=== PATIENT | female | born 1965 | race American Indian/Alaskan Native ===

== ENCOUNTER 2018-03-09 23:44 | Emergency (ER) | payer SELFPAY ==
[2018-03-10 01:59] VITALS: BP 122/82
[2018-03-10 03:36] LABS: Hematocrit 36.1 % (30.3-42.9); Mean Corpuscular HGB Conc 33 % (30-34); Mean Corpuscular Hemoglobin 28 pg (28-32); Mean Corpuscular Volume 84 fl (79-97); Platelet Count 288 K/mm3 (140-440); Red Blood Count 4.32 M/mm3 (3.65-5.03); Red Cell Distribution Width 15.6 % (13.2-15.2)
[2018-03-10 03:49] LABS: BUN/Creatinine Ratio 17; Blood Urea Nitrogen 10 mg/dL (7-17); Hemolysis Index 22
[2018-03-10 04:24] LABS: Bilirubin,Urine NEG (Negative); Blood,Urine NEG (Negative); Color,Urine Yellow (Yellow); Mucus,Urine FEW /HPF; Protein,Urine <15 mg/dL mg/dL (Negative); Urobilinogen,Urine < 2.0 mg/dL (<2.0)
== END 2018-03-10 09:05 | disposition left against medical advice (07) ==
LOC: ED 23:44
DX: H53.8 Other visual disturbances (principal); Z53.21 Procedure and treatment not carried out due to patient leaving prior to being seen by health care provider
CPT/HCPCS: 36415; 80048; 81001; 85027; 93005; 93010

== ENCOUNTER 2018-03-12 09:02 | Emergency (ER) | payer SELFPAY ==
--- NOTE | 2018-03-12 12:58 | Emergency Department Report ---
Blank Doc - Documentation Documentation: 52-year-old female with no significant past medical history but has not seen a doctor in several years presents to the hospital with 2 near syncopal episodes this week. Patient came here on the for near-syncopal episode was started at 10 PM. Patient had nausea, dizziness, blurred vision and almost passed out. She came to the ER to be evaluated. Labs and EKG performed but left prior to M.D. evaluation. Patient reports that while getting out of bed this a.m. she had a repeat episode of dizziness/lightheadedness, blurred vision, and had mild left-sided sharp chest pain and shortness of breath. Episodes spontaneously resolved. Patient states she almost fell but did not pass out completely. She denies alcohol, drug use, nausea, vomiting, diarrhea, melena, or hematochezia. She states she's been eating and drinking appropriately. While week ago patient returns to [place] via bus ride but does not have any calf tenderness, edema, leg asymmetry. Patient denies pain at this time Repeat EKG reviewed an unchanged normal sinus rhythm rate 63, QRS axis 95, Esterase 95, no ST elevation or T-wave inversions. [facility] Repeat labs CBC, BMP, CK, troponin, UDS, d-dimer Mid-level to evaluate
[2018-03-12 13:24] LABS: Basophils % (Auto) 0.8 % (0.0-1.8); Eosinophils # (Auto) 0.1 K/mm3 (0.0-0.4); Eosinophils % (Auto) 1.3 % (0.0-4.3); Hematocrit 38.4 % (30.3-42.9); Hemoglobin 12.4 gm/dl (10.1-14.3); Lymphocytes # (Auto) 2.6 K/mm3 (1.2-5.4); Lymphocytes % (Auto) 44.1 % (13.4-35.0); Mean Corpuscular HGB Conc 32 % (30-34); Mean Corpuscular Hemoglobin 28 pg (28-32); Mean Corpuscular Volume 86 fl (79-97); Monocytes # (Auto) 0.6 K/mm3 (0.0-0.8); Monocytes % (Auto) 9.7 % (0.0-7.3); Platelet Count 286 K/mm3 (140-440); Red Blood Count 4.49 M/mm3 (3.65-5.03); Red Cell Distribution Width 15.9 % (13.2-15.2)
[2018-03-12 13:49] LABS: BUN/Creatinine Ratio 13; Blood Urea Nitrogen 8 mg/dL (7-17); Calcium 9.2 mg/dL (8.4-10.2); Hemolysis Index 4
[2018-03-12 13:51] LABS: Creatine Kinase MB < 1.0 ng/mL (0.0-4.0)
--- NOTE | 2018-03-12 14:20 | Emergency Department Report ---
ED Syncope HPI - General Chief Complaint: Syncope Stated Complaint: SYNCOPE Time Seen by Provider: 03/12/18 12:46 - History of Present Illness Initial Comments: 52-year-old female past medical history hypertension, tubal ligation presents with complaint of intermittent syncopal episodes and dizziness. States she has had multiple episodes of near loss of consciousness. Complaining of left-sided chest side pain. Patient is awake alert and oriented 3. Denies any shortness of breath at this time. States she has had recent travel. Denies any previous history of PE or DVT. Patient's screening by Dr. Duval earlier. Patient came to the ED 3 days ago but eloped before she was evaluated. Timing/Prior Episodes: recent history Precipitating Factors: Positive: lightheadedness Loss of Consciousness: brief (seconds) Current Symptoms: dizziness, lightheadedness - Related Data Allergies/Adverse Reactions: Allergies No Known Allergies Allergy (Unverified 03/10/18 02:53) ED Review of Systems ROS: Stated complaint: SYNCOPE Other details as noted in HPI Constitutional: denies: chills, fever Eyes: denies: eye pain, eye discharge, vision change ENT: denies: ear pain, throat pain Respiratory: denies: cough, shortness of breath, wheezing Cardiovascular: denies: chest pain, palpitations Endocrine: no symptoms reported Gastrointestinal: denies: abdominal pain, nausea, diarrhea Genitourinary: denies: urgency, dysuria, discharge Musculoskeletal: denies: back pain, joint swelling, arthralgia Skin: denies: rash, lesions Neurological: headache, weakness. denies: paresthesias Psychiatric: denies: anxiety, depression Hematological/Lymphatic: denies: easy bleeding, easy bruising ED Past Medical Hx - Past Medical History Previous Medical History?: No - Surgical History Past Surgical History?: Yes Additional Surgical History: Tubal Ligation - Social History Smoking Status: Never Smoker ED Physical Exam - General Limitations: No Limitations General appearance: alert, in no apparent distress - Head Head exam: Present: atraumatic, normocephalic - Eye Eye exam: Present: normal appearance, PERRL, EOMI - ENT ENT exam: Present: mucous membranes moist - Neck Neck exam: Present: normal inspection - Respiratory Respiratory exam: Present: normal lung sounds bilaterally. Absent: respiratory distress - Cardiovascular Cardiovascular Exam: Present: regular rate, normal rhythm. Absent: systolic murmur, diastolic murmur, rubs, gallop - GI/Abdominal GI/Abdominal exam: Present: soft, normal bowel sounds - Extremities Exam Extremities exam: Present: normal inspection - Back Exam Back exam: Present: normal inspection - Neurological Exam Neurological exam: Present: alert, oriented X3, CN II-XII intact, normal gait - Expanded Neurological Exam Expanded Patient oriented to: Present: person, place Cranial nerves: EOM's Intact: Normal, Facial Sensation: Normal Cerebellar function: Finger to Nose: Normal, Heel to [place]: Normal, [place]: Normal Sensory exam: Upper Extremity Light Touch: Normal, Lower Extremity Light Touch: Normal Motor strength exam: RUE: 5, LUE: 5, RLE: 5, LLE: 5 Best Eye Response ([place]): (4) open spontaneously Best Motor Response ([place]): (6) obeys commands Best Verbal Response ([place]): (5) oriented [place] Total: 15 - Psychiatric Psychiatric exam: Present: normal affect, normal mood - Skin Skin exam: Present: warm, dry, intact, normal color. Absent: rash ED Course Vital Signs 03/12/18 09:07 Temperature 98.2 F Pulse Rate 74 Respiratory 20 Rate Blood Pressure 153/99 O2 Sat by Pulse 99 Oximetry ED Medical Decision Making - Lab Data Result diagrams: 03/12/18 13:09 03/12/18 13:13 - Medical Decision Making A/P: Right-sided pulmonary embolism, syncope 1-CT shows right-sided PEs, will treat empirically with weight-based Lovenox 2-case discussed with ED attending and hospitalist Dr. Mcconnell 3-patient is clinically stable at this time not actively hypoxic or hypotensive. 4-I informed patient of her CT results and clinical plan for admission Critical care attestation.: If time is entered above; I have spent that time in minutes in the direct care of this critically ill patient, excluding procedure time. ED Disposition Clinical Impression: Pulmonary embolism Qualifiers: Pulmonary embolism type: other Chronicity: acute Acute cor pulmonale presence: without acute cor pulmonale Qualified Code(s): I26.99 - Other pulmonary embolism without acute cor pulmonale Disposition: OP ADMIT IP TO THIS HOSP Is pt being admited?: Yes Does the pt Need Aspirin: No Condition: Stable Referrals: PRIMARY CARE, [Primary Care Provider] - 3-5 Days
[2018-03-12] MEDS ORDERED: NACL 0.9% 1000 ML 1,000 ML IV ONE (15:14)
[2018-03-12] MEDS ORDERED: LOVENOX SUB-Q ONE (16:07)
--- NOTE | 2018-03-12 16:09 | Cat Scan Report ---
FINAL REPORT EXAM: CT ANGIO CHEST HISTORY: +d-dimer, syncope ? PE TECHNIQUE: Spiral CTA of the chest after the uneventful administration of IV contrast. Multiplanar reformations. PRIORS: None. FINDINGS: A few, endoluminal filling defects noted in the right lower lobe segmental and subsegmental pulmonary arteries compatible with pulmonary emboli. The main pulmonary trunk and left proximal pulmonary arteries are normally opacified. Enlarged and contains multiple hypodense foci or nodules bilaterally, right greater left, largest measuring approximately 1.8 cm. Cardiac size within normal limits. No apparent aneurysm, pseudoaneurysm or aortic dissection. No significant lymph node enlargement or axillary adenopathy. Lungs show no discrete parenchymal mass, focal consolidation or pleural effusions. No apparent pneumothorax. Visualized upper abdomen grossly unremarkable. IMPRESSION: 1. Findings compatible with right pulmonary emboli. Very mild clot burden. 2. No acute consolidation. 3. Findings which may represent goitrous change, including thyromegaly and multiple hypodense nodules, but nonspecific. Clinical correlation and followup suggested. Dr. Nails discussed results with COLTEN, named Manoj Cornelius, on 12 March 2018 at approximately 1600 hours EST.
--- NOTE | 2018-03-12 17:06 | History and Physical Report ---
History of Present Illness Chief complaint: I got dizzy, and short of breath History of present illness: 52 YO female with No PMH presents to ED for evaluation of dizziness, and pleuritic chest pain. Pt seen and evaluated in ED and found to have small pulmonary emboli without respiratory distress, or EKG strain pattern. Pt treated with therapeutic anticoagulation. Pt medically optimized and discharged. Pt instructed to f/u pcp 1 wk for f/u care. and hematology prn. Pt acknowledges family history of DVT. Past History Past Medical History: No medical history Past Surgical History: Other (tubal ligation) Social history: single. denies: smoking, alcohol abuse Family history: other (DVT) Medications and Allergies Allergies Allergy/AdvReac Type Severity Reaction Status Date / Time No Known Allergies Allergy Unverified 03/10/18 02:53 Home Medications Medication Instructions Recorded Confirmed Last Taken Type Apixaban [Eliquis] 5 mg PO DAILY #74 tablet 03/12/18 Unknown Rx Active Meds: Active Medications Apixaban (Eliquis) 10 mg PO Q12HR BECKY; Protocol Review of Systems Constitutional: no weight loss, no weight gain, no fever, no chills Ears, nose, mouth and throat: no ear pain, no ear discharge, no tinnitis, no decreased hearing, no nose pain, no nasal congestion, no nasal discharge Breasts: no change in shape, no swelling, no mass Cardiovascular: no chest pain, no orthopnea, no palpitations, no rapid/ irregular heart beat Respiratory: no cough, no cough with sputum, no hemoptysis Gastrointestinal: no nausea, no vomiting, no diarrhea, no constipation, no change in bowel habits Genitourinary Female: no pelvic pain, no flank pain, no menorrhagia, no dysuria , no urinary frequency Rectal: no pain, no incontinence Musculoskeletal: no neck stiffness, no neck pain, no shooting arm pain, no arm numbness/tingling, no low back pain, no shooting leg pain Integumentary: no rash, no pruritis, no sores, no wounds, no jaundice Neurological: no paralysis, no weakness, no parathesias, no numbness, no seizures Psychiatric: no anxiety, no memory loss, no change in sleep habits, no sleep disturbances, no insomnia, no hypersomnia, no change in appetite Endocrine: no cold intolerance, no heat intolerance, no excessive thirst, no polydipsia, no polyuria Hematologic/Lymphatic: no easy bruising, no easy bleeding, no lymphadenopathy Allergic/Immunologic: no urticaria, no allergic rhinitis, no wheezing, no persistent infections, no angioedema Exam - Constitutional Vitals: Temp Pulse Resp BP Pulse Ox 98.2 F 74 20 153/99 99 03/12/18 09:07 03/12/18 09:07 03/12/18 09:07 03/12/18 09:07 03/12/18 09:07 General appearance: Present: no acute distress, well-nourished - EENT Eyes: Present: PERRL ENT: hearing intact, clear oral mucosa - Neck Neck: Present: supple, normal ROM - Respiratory Respiratory effort: normal Respiratory: bilateral: CTA - Cardiovascular Heart Sounds: Present: S1 & S2. Absent: rub, click - Extremities Extremities: pulses symmetrical, No edema Peripheral Pulses: within normal limits - Abdominal General gastrointestinal: Present: soft, non-tender, non-distended, normal bowel sounds Female genitourinary: Present: normal - Integumentary Integumentary: Present: clear, warm, dry - Musculoskeletal Musculoskeletal: gait normal, strength equal bilaterally - Psychiatric Psychiatric: appropriate mood/affect, intact judgment & insight - Neurologic Neurologic: CNII-XII intact, moves all extremities Results - Labs CBC & Chem 7: 03/12/18 13:09 03/12/18 13:13 Labs: Abnormal lab results 03/12/18 03/12/18 03/12/18 Range/Units 13:09 13:13 13:13 RDW 15.9 H (13.2-15.2) % Lymph % (Auto) 44.1 H (13.4-35.0) % [place] % (Auto) 9.7 H (0.0-7.3) % D-Dimer 321.97 H (0-234) ng/mlDDU Creatinine 0.6 L (0.7-1.2) mg/dL Assessment and Plan - Patient Problems (1) Pulmonary embolism Current Visit: Yes Status: Acute Qualifiers: Pulmonary embolism type: other Chronicity: acute Acute cor pulmonale presence: without acute cor pulmonale Qualified Code(s): I26.99 - Other pulmonary embolism without acute cor pulmonale Plan to address problem: Therapeutic anticoagulation with eliquis, D/C home, f/u pcp 1wk, hematology prn. Pt given coupon for Eliquis.
[2018-03-12] MEDS ORDERED: TYLENOL PO ONE (17:52)
[2018-03-12] MEDS ORDERED: ELIQUIS PO SCH (18:00)
[2018-03-12 21:29] VITALS: BP 140/89
== END 2018-03-12 21:52 | disposition home or self-care (01) ==
LOC: ED 09:02
DX: I26.99 Other pulmonary embolism without acute cor pulmonale (principal); Z98.51 Tubal ligation status
CPT/HCPCS: 36415; 71275; 80048; 82550; 82553; 84484; 85025; 85379; 93005; 93010; 96360; 96372; 99284; J1650; J7030; Q9967